=== PATIENT | female | born 1985 | race Caucasian/White ===

== ENCOUNTER 2023-07-02 14:56 | Emergency (ER) | payer OTHER ==
[~2023-07-02] VITALS: Ht 160 cm; Wt 58.5 kg
[2023-07-02] MEDS ORDERED: TOPAMAX25 MG PO (15:21)
[2023-07-02] MEDS ORDERED: METOCLOPRAMIDE HCL 5 MG/ML VIAL IM STA (16:35)
[2023-07-02] MEDS ORDERED: MECLIZINE HCL 25 MG TABLET PO STA (16:35)
== END 2023-07-02 17:28 | disposition home or self-care (01) ==
LOC: ER 14:56
DX: H81.10 Benign paroxysmal vertigo, unspecified ear (principal); Z88.8 Allergy status to other drugs, medicaments and biological substances
CPT/HCPCS: 93005; 96372; 99282; J2765

== ENCOUNTER 2023-12-22 17:09 | Emergency (ER) | payer OTHER ==
[~2023-12-22] VITALS: Ht 160 cm; Wt 59.0 kg
[~2023-12-22 17:09] MED LIST: TOPAMAX25 MG PO
[2023-12-22] MEDS ORDERED: TRAMADOL HCL 50 MG TABLET PO ONE (18:45)
[2023-12-22] MEDS ORDERED: ACETAMINOPHEN 500 MG GEL..CAP PO ONE (18:51)
[2023-12-22 18:56] LABS: URINE APPEARANCE Clear; URINE BILIRRUBIN Negative (NEGATIVE); URINE BLOOD Negative; URINE COLOR Yellow; URINE GLUCOSE Negative (NEGATIVE); URINE KETONE Negative (NEGATIVE); URINE LEUKOCYTE Negative; URINE NITRATE Negative; URINE PROTEIN Negative (NEGATIVE)
[2023-12-22 18:58] LABS: HEMATOCRIT 36.9 % (36.0-45.00); HEMOGLOBIN 12.3 g/dL (12.0-15.00); MEAN CELL VOLUME 80.6 fL (80.00-100.00); MEAN CORPUSCULAR HEMOGLOBIN 26.8 pg (27.00-32.0); MEAN CORPUSCULAR HGB CONC 33.2 g/dl (32.0-36.0); PLATELET COUNT 336 K/uL (150-450); RED BLOOD COUNT 4.58 M/uL (4.00-6.00)
[2023-12-22 18:59] LABS: URINE EPITHELIAL CELLS 71.5 uL (0.0-38.8); URINE WBC 39.7 uL (0.0-23.2)
[2023-12-22 19:19] LABS: CALCIUM 9.6 mg/dL (8.5-10.1); CREATININE SERUM 0.92 mg/dL (0.55-1.02); GFR 67.61; POTASSIUM 3.44 mEq/L (3.5-5.1)
[2023-12-22 19:29] LABS: URINE RBC 0.6 uL (0.0-20.8)
== END 2023-12-22 22:01 | disposition home or self-care (01) ==
LOC: ER 17:10
PROVIDERS: General Practice
DX: N94.0 Mittelschmerz (principal); R10.2 Pelvic and perineal pain; I10 Essential (primary) hypertension; Z88.6 Allergy status to analgesic agent

== ENCOUNTER 2024-03-05 10:38 | Outpatient (CLI) | payer OTHER | END 2024-03-05 10:52 | disposition home or self-care (01) | LOC: MAMO-SONO 10:38 | PROVIDERS: ATTEND Specialist | DX: Z12.31 Encounter for screening mammogram for malignant neoplasm of breast (principal) ==

== ENCOUNTER 2024-03-24 10:58 | Outpatient (CLI) | payer OTHER ==
[2024-03-24 12:06] LABS: HEMATOCRIT 39.4 % (36.0-45.00); HEMOGLOBIN 13.1 g/dL (12.0-15.00); MEAN CELL VOLUME 83.3 fL (80.00-100.00); MEAN CORPUSCULAR HEMOGLOBIN 27.6 pg (27.00-32.0); MEAN CORPUSCULAR HGB CONC 33.1 g/dl (32.0-36.0); PLATELET COUNT 426 K/uL (150-450); RED BLOOD COUNT 4.74 M/uL (4.00-6.00); RED CELL DISTRIBUTION WIDTH 13.6 % (11.5-14.5)
[2024-03-26 23:05] LABS: chla t Negative (Negative); neiss Negative (Negative)
== END 2024-03-24 10:59 | disposition home or self-care (01) ==
LOC: LAB 10:58
PROVIDERS: ATTEND Specialist
DX: Z12.31 Encounter for screening mammogram for malignant neoplasm of breast (principal); R42 Dizziness and giddiness; M71.8 Other specified bursopathies

== ENCOUNTER 2024-05-24 22:14 | Emergency (ER) | payer OTHER ==
[~2024-05-24] VITALS: Ht 160 cm; Wt 58.5 kg
== END 2024-05-25 01:17 | disposition home or self-care (01) ==
LOC: ER 22:16
DX: R53.81 Other malaise (principal); J06.9 Acute upper respiratory infection, unspecified; Z20.822 Contact with and (suspected) exposure to COVID-19; Z88.6 Allergy status to analgesic agent

== ENCOUNTER 2024-08-18 17:16 | Emergency (ER) | payer OTHER ==
[~2024-08-18] VITALS: Ht 160 cm; Wt 59.9 kg
[2024-08-18 17:30] VITALS: BP 113/79; O2SAT 99
[2024-08-18] MEDS ORDERED: [UNRECOGNIZED DRUG - OTHER] (17:30)
[2024-08-18 20:28] LABS: HEMATOCRIT 38.1 % (36.0-45.00); HEMOGLOBIN 12.6 g/dL (12.0-15.00); MEAN CELL VOLUME 82.2 fL (80.00-100.00); MEAN CORPUSCULAR HEMOGLOBIN 27.2 pg (27.00-32.0); MEAN CORPUSCULAR HGB CONC 33.1 g/dl (32.0-36.0); PLATELET COUNT 358 K/uL (150-450); RED BLOOD COUNT 4.63 M/uL (4.00-6.00); RED CELL DISTRIBUTION WIDTH 14.4 % (11.5-14.5)
[2024-08-18 20:50] LABS: CALCIUM 9.1 mg/dL (8.5-10.1); GFR 61.1; POTASSIUM 3.68 mEq/L (3.5-5.1)
== END 2024-08-18 21:02 | disposition home or self-care (01) ==
LOC: ER 17:19
PROVIDERS: General Practice
DX: R42 Dizziness and giddiness (principal); Z88.8 Allergy status to other drugs, medicaments and biological substances

== ENCOUNTER 2024-10-05 13:10 | Emergency (ER) | payer OTHER ==
[~2024-10-05] VITALS: Ht 160 cm; Wt 59.0 kg
[~2024-10-05 13:10] MED LIST changes: +[UNRECOGNIZED DRUG - OTHER]
[2024-10-05] MEDS ORDERED: RINGERS SOLUTION,LACTATED 1,000 ML IV STA (14:45)
[2024-10-05 15:41] LABS: PH,URINE 5.5 (5.0-8.0); URINE APPEARANCE Clear; URINE BILIRRUBIN Negative (NEGATIVE); URINE BLOOD Negative; URINE COLOR Dark Yellow; URINE GLUCOSE Negative (NEGATIVE); URINE KETONE Negative (NEGATIVE); URINE LEUKOCYTE Negative; URINE NITRATE Negative; URINE PROTEIN Negative (NEGATIVE)
[2024-10-05 15:42] LABS: URINE BACTERIA 2801.4 uL (0.0-1933); URINE WBC 32.1 uL (0.0-23.2)
[2024-10-05 15:42] LABS: BASO % 0.8 % (0.1-1.2); EOS # 0.41 (0.04-0.54); EOS % 4.1 % (0.7-7.0); HEMATOCRIT 36.2 % (34.1-44.9); HEMOGLOBIN 11.8 g/dL (11.2-15.7); LYMPH % 25.1 % (19.3-53.1); MEAN CORPUSCULAR HEMOGLOBIN 26.7 pg (25.6-32.2); MONO # 0.65 (0.24-0.82); MONO % 6.5 % (4.7-12.5); NEUT # 6.32 (1.56-6.13); NEUT % 63.3 % (34.0-71.1); PLATELET COUNT 336 K/uL (163-369); RED BLOOD COUNT 4.42 M/uL (3.93-5.22); RED CELL DISTRIBUTION WIDTH 13.3 % (11.6-14.4)
[2024-10-05 15:57] LABS: URINE CAST 0.14 uL (0.0-1.40); URINE RBC 1.6 uL (0.0-20.8)
[2024-10-05 16:02] LABS: CREATININE SERUM 0.89 mg/dL (0.55-1.02); GFR 69.89; POTASSIUM 3.96 mEq/L (3.5-5.1)
[2024-10-05] MEDS ORDERED: NORFLEX100MG PO (17:42)
[2024-10-05] MEDS ORDERED: PEPCID AC20 MG PO (17:42)
[2024-10-05] MEDS ORDERED: ORPHENADRINE CITRATE 30 MG/ML AMPUL ONE (17:52)
[2024-10-05] MEDS ORDERED: ORPHENADRINE CITRATE 30 MG/ML AMPUL IM ONE (18:00)
== END 2024-10-05 18:05 | disposition home or self-care (01) ==
LOC: ER 13:31
PROVIDERS: General Practice
DX: R10.2 Pelvic and perineal pain (principal); Z88.6 Allergy status to analgesic agent

== ENCOUNTER → 2024-11-13 | Emergency (ER) | payer OTHER ==
[~2024-11-13] VITALS: Ht 160 cm; Wt 59.0 kg
[~2024-11-13] MED LIST changes: +NORFLEX100MG PO; +ORPHENADRINE CITRATE 100 MG TABLET PO STA; +ORPHENADRINE CITRATE 30 MG/ML AMPUL IM STA; +PEPCID AC20 MG PO
== END | disposition home or self-care (01) ==
LOC: ER 20:42
DX: G44.209 Tension-type headache, unspecified, not intractable (principal); Z88.8 Allergy status to other drugs, medicaments and biological substances